=== PATIENT | male | born 1940 | race Caucasian/White ===

== ENCOUNTER 2021-09-20 11:42 | Outpatient (CLI) | payer MEDICARE ==
[2021-09-20 13:14] LABS: Hemoglobin 15.6 g/dL (13.5-17.5); Mean Corpuscular HGB CONC 34.1 g/dL (32.0-36.0); Mean Corpuscular Hemoglobin 31.9 pg (27.0-33.0); Mean Corpuscular Volume 93.5 fl (81.2-95.1); Mean Platelet Volume 11.5 fl (7.4-10.4); Platelet Count 215 10x3/uL (150-450); RBC Distribution Width 12.4 % (11.5-14.5); Red Blood Cell (RBC) Count 4.89 10x6/uL (4.32-5.72); White Blood Cell (WBC) Count 9.6 10x3/uL (3.5-10.5)
[2021-09-20 13:37] LABS: Anion Gap 16 mmol/L (10-20); BUN (Urea Nitrogen) 26 mg/dL (8.4-25.7); Calc. Creatinine Clearance 0 mL/min (70-130); Carbon Dioxide 25 mmol/L (23-31); Chloride 102 mmol/L (98-107); Potassium 4.2 mmol/L (3.5-5.1); Sodium 139 mmol/L (136-145)
[2021-09-20 13:38] LABS: Calcium 9.5 mg/dL (7.8-10.44); Glucose 111 mg/dL (83-110)
[2021-09-21 14:35] LABS: SARS-CoV-2 PCR by NAA Not Detected (NotDetected)
== END 2021-09-20 11:43 | disposition home or self-care (01) ==
LOC: CSHLAB 11:42
PROVIDERS: ATTEND Surgery
DX: Z01.818 Encounter for other preprocedural examination (principal); Z20.822 Contact with and (suspected) exposure to COVID-19; C15.5 Malignant neoplasm of lower third of esophagus
CPT/HCPCS: 80048; 85027; 93005; 93010; U0003; U0005

== ENCOUNTER 2021-09-25 05:24 | Day surgery (SDC) | payer MEDICARE ==
[2021-09-19 11:51] VITALS: BMI 33.7
[2021-09-25] MEDS ORDERED: PROPOFOL 0 ML ONE (06:31)
[2021-09-25] MEDS ORDERED: Lidocaine 1% PF 5 ML VIAL ONE (06:31)
[2021-09-25] MEDS ORDERED: Lidocaine 1% MPF 2 ML VIAL ONE (06:35)
[2021-09-25] MEDS ORDERED: Bupivacaine 0.25% HCL 30 ML VIAL ONE (06:39)
[2021-09-25] MEDS ORDERED: EPINEPHrine 1 MG/ML AMP ONE (06:40)
[2021-09-25] MEDS ORDERED: ceFAZolin 2 GM/Dextrose 50 ML IVPB ONE (06:59)
[2021-09-25] MEDS ORDERED: PROPOFOL 40 ML ONE (07:15)
[2021-09-25] MEDS ORDERED: Acetaminophen 325 MG TAB PO PRN (07:46)
[2021-09-25] MEDS ORDERED: HYDROcodone/Acetaminophen 5/325 mg Tablet PO PRN (07:46)
== END 2021-09-25 09:00 | disposition home or self-care (01) ==
LOC: CSHSDC 05:24
PROVIDERS: ATTEND Surgery
DX: C15.5 Malignant neoplasm of lower third of esophagus (principal); Z79.899 Other long term (current) drug therapy; Z79.82 Long term (current) use of aspirin; Z79.84 Long term (current) use of oral hypoglycemic drugs; I10 Essential (primary) hypertension; R73.09 Other abnormal glucose; Z87.891 Personal history of nicotine dependence
CPT/HCPCS: 76000; C1788; J0171; J0690; J1642; J2704; S0020